=== PATIENT | female | born 1990 | race Caucasian/White ===

== ENCOUNTER 2020-03-19 10:34 | Emergency (ER) | payer BC ==
[2020-03-19 11:31] LABS: Bilirubin Negative (Negative); Blood, Urine Negative (Negative); Clarity Clear (Clear); Glucose, Urine (Dipstick) Normal (Negative); Ketone, Urine Negative (Negative); Leukocyte Negative Leu/uL (Negative); Nitrite Negative (Negative); Protein, Urine (Dipstick) Negative (Neg-Trace); Specific Gravity, Urine 1.001 (1.002-1.036); Urobilinogen Normal mg/dL (Less than 2)
[2020-03-19 11:55] LABS: SARS-CoV-2 NAA Rapid Test Not Detected (NotDetected)
[2020-03-19] MEDS ORDERED: Iopamidol-370 76% 500 ML 1 ML ONE (12:13)
[2020-03-19 13:02] LABS: #Eosinphils 0.1 thou/uL (0.0-0.7); #Lymphocytes 1.6 thou/uL (1.20-3.40); #Monocytes 0.6 thou/uL (0.11-0.59); #Neutrophils 8.1 thou/uL (1.40-6.50); %Basophils 0.3 % (0.0-1.0); %Eosinophils 1.4 % (0.0-10.0); %Lymphocytes 15.3 % (21.0-51.0); %Neutrophils 77.1 % (42.0-75.0); Mean Corpuscular HGB CONC 34.1 g/dL (32.0-36.0); Mean Corpuscular Hemoglobin 31.3 pg (27.0-31.0); Mean Corpuscular Volume 91.8 fL (78.0-98.0); Mean Platelet Volume 6.6 fL (7.4-10.4); Platelet Count 248 thou/uL (130-400); RBC Distribution Width 11.4 % (11.5-14.5); Red Blood Cell (RBC) Count 4.15 mill/uL (4.20-5.40); White Blood Cell (WBC) Count 10.5 thou/uL (4.8-10.8)
[2020-03-19 13:33] LABS: ALT (SGPT) 8 U/L (8-55); AST (SGOT) 14 U/L (5-34); Albumin 3.4 g/dL (3.5-5.0); Alkaline Phosphatase 75 U/L (40-110); Anion Gap 12 mmol/L (10-20); BUN (Urea Nitrogen) 7 mg/dL (7.0-18.7); Bilirubin, Total 0.4 mg/dL (0.2-1.2); Calc. Creatinine Clearance 0 mL/min (70-130); Calcium 8.4 mg/dL (7.8-10.44); Carbon Dioxide 24 mmol/L (22-29); Chloride 105 mmol/L (98-107); Globulin 3.1 g/dL (2.4-3.5); Glucose 84 mg/dL (70-105); Protein, Total 6.5 g/dL (6.0-8.3); Sodium 137 mmol/L (136-145)
--- NOTE | 2020-03-19 15:23 | CT ---
CTA Angio Chest W WO Con 03/19/2020 2:58 PM Indication: History of shortness of breath and fatigue and 26 weeks Technique: Multiple CTA images were obtained of the thorax with IV contrast. 3-D rendering: MIP ranjit nstructed images were created and reviewed. Comparison: No relevant prior studies available. Findings: Pulmonary arteries: No central or segmental pulmonary embolus is evident. Heart and Aorta: Normal appearing. Mediastinum:Normal appearing. No enlarged lymph nodes. Lungs:The lungs are clear. Pleural space: Clear. Upper Abdomen: No acute abnormality. Osseous Structures: Dextroscoliosis of the thoracic spine. No acute fracture. Soft tissues:No abnormality. Other findings:None. Impression: No central or segmental pulmonary embolus.
== END 2020-03-19 16:00 | disposition home or self-care (01) ==
LOC: ERS 10:34
DX: O99.891 Other specified diseases and conditions complicating pregnancy (principal); R06.02 Shortness of breath; M41.9 Scoliosis, unspecified; O99.282 Endocrine, nutritional and metabolic diseases complicating pregnancy, second trimester; E03.9 Hypothyroidism, unspecified; Z79.899 Other long term (current) drug therapy; Z3A.26 26 weeks gestation of pregnancy
CPT/HCPCS: 0240U; 36415; 71275; 80053; 81003; 84702; 85025; 85379; 87086; Q9967